=== PATIENT | female | born 1965 | race Native Hawaiian/Other Pacific Islander ===

== ENCOUNTER 2017-04-23 01:13 | Emergency (ER) | payer OTHER ==
[~2017-04-23] VITALS: Ht 167.6 cm; Wt 93.4 kg
[2017-04-23] MEDS ORDERED: BENTYL10 MG PO (02:07)
[2017-04-23] MEDS ORDERED: DIAZ2TAB PO (02:08)
[2017-04-23] MEDS ORDERED: VYVANSE20 M1 PO (02:08)
[2017-04-23 03:10] LABS: PLATELET COUNT 304 K/uL (152-353)
[2017-04-23 03:14] LABS: POTASSIUM 3.4 mmol/L (3.6-5.2); SODIUM 137 mmol/L (136-145)
[2017-04-23 05:20] VITALS: BP 143/73; TEMP 98.4
== END 2017-04-23 05:26 | disposition home or self-care (01) ==
LOC: ED 01:13
PROVIDERS: Family Medicine
DX: K57.92 Diverticulitis of intestine, part unspecified, without perforation or abscess without bleeding (principal)
CPT/HCPCS: 36415; 80053; 80307; 81000; 82150; 83690; 85027; 96361; 96365; 96375; 99284; J1170; J2405; J3490

== ENCOUNTER 2017-09-30 17:30 | Emergency (ER) | payer OTHER ==
[~2017-09-30] VITALS: Ht 167.6 cm; Wt 102.5 kg
[~2017-09-30 17:30] MED LIST: BENTYL10 MG PO; DIAZ2TAB PO; VYVANSE20 M1 PO
[2017-09-30 17:43] VITALS: BP 180/109; TEMP 99
== END 2017-09-30 19:42 | disposition home or self-care (01) ==
LOC: ED 17:30
DX: S83.8X1D Sprain of other specified parts of right knee, subsequent encounter (principal); W10.8XXD Fall (on) (from) other stairs and steps, subsequent encounter

== ENCOUNTER 2017-10-14 16:43 | Emergency (ER) | payer OTHER ==
[~2017-10-14] VITALS: Ht 167.6 cm; Wt 102.5 kg
[2017-10-14 16:56] VITALS: BP 168/118; TEMP 98.1
== END 2017-10-14 17:34 | disposition home or self-care (01) ==
LOC: ED 16:43
DX: G89.29 Other chronic pain (principal)
CPT/HCPCS: 99282

== ENCOUNTER 2017-11-16 18:37 | Emergency (ER) | payer OTHER ==
[~2017-11-16] VITALS: Ht 167.6 cm; Wt 102.5 kg
[2017-11-16 19:28] LABS: PLATELET COUNT 245 K/uL (152-353)
[2017-11-16 20:15] VITALS: BP 154/69; TEMP 99.2
== END 2017-11-16 20:15 | disposition home or self-care (01) ==
LOC: ED 18:37
DX: M94.261 Chondromalacia, right knee (principal); M17.11 Unilateral primary osteoarthritis, right knee; M25.561 Pain in right knee
CPT/HCPCS: 36415; 85027; 99283; L1830

== ENCOUNTER 2017-12-05 11:49 | Emergency (ER) | payer OTHER ==
[~2017-12-05] VITALS: Ht 167.6 cm; Wt 102.5 kg
[2017-12-05 11:50] VITALS: TEMP 98.8
[2017-12-05 14:24] LABS: PLATELET COUNT 238 K/uL (152-353)
== END 2017-12-05 15:30 | disposition home or self-care (01) ==
LOC: ED 11:49
DX: M47.896 Other spondylosis, lumbar region (principal); M51.86 Other intervertebral disc disorders, lumbar region
CPT/HCPCS: 36415; 85027; 85651; 99283

== ENCOUNTER 2018-01-04 17:16 | Emergency (ER) | payer OTHER ==
[~2018-01-04] VITALS: Ht 167.6 cm; Wt 102.5 kg
[2018-01-04 17:26] VITALS: TEMP 97.7
[2018-01-04 18:18] VITALS: BP 138/72
== END 2018-01-04 18:18 | disposition home or self-care (01) ==
LOC: ED 17:16
DX: M54.16 Radiculopathy, lumbar region (principal)
CPT/HCPCS: 99282

== ENCOUNTER 2018-01-18 22:39 | Emergency (ER) | payer OTHER ==
[~2018-01-18] VITALS: Ht 167.6 cm; Wt 102.5 kg
[2018-01-18] MEDS ORDERED: PHENTERMINE15 MG PO (22:55)
[2018-01-18 23:52] LABS: PLATELET COUNT 245 K/uL (152-353)
[2018-01-19 00:03] LABS: POTASSIUM 3.8 mmol/L (3.6-5.2)
[2018-01-19 01:06] VITALS: BP 156/86; TEMP 98.2
== END 2018-01-19 01:06 | disposition home or self-care (01) ==
LOC: ED 22:39
PROVIDERS: Emergency Medicine
DX: N20.0 Calculus of kidney (principal)
CPT/HCPCS: 36415; 80053; 81000; 81025; 85027; 96365; 96374; 99284; J2175

== ENCOUNTER 2018-02-07 18:12 | Emergency (ER) | payer OTHER ==
[~2018-02-07] VITALS: Ht 167.6 cm; Wt 102.5 kg
[~2018-02-07 18:12] MED LIST changes: +PHENTERMINE15 MG PO
[2018-02-07 19:48] VITALS: BP 148/79; TEMP 98.3
== END 2018-02-07 19:49 | disposition home or self-care (01) ==
LOC: ED 18:12
DX: M54.32 Sciatica, left side (principal)
CPT/HCPCS: 99283

== ENCOUNTER 2018-03-12 09:03 | Emergency (ER) | payer OTHER ==
[~2018-03-12] VITALS: Ht 167.6 cm; Wt 102.5 kg
[2018-03-12 10:07] LABS: PLATELET COUNT 240 K/uL (152-353)
[2018-03-12 10:11] LABS: POTASSIUM 4.1 mmol/L (3.6-5.2)
[2018-03-12 11:25] VITALS: BP 150/85; TEMP 98
== END 2018-03-12 11:32 | disposition home or self-care (01) ==
LOC: ED 09:03
PROVIDERS: Family Medicine
DX: R31.9 Hematuria, unspecified (principal); R10.9 Unspecified abdominal pain
CPT/HCPCS: 36415; 80053; 80307; 81000; 85027; 96361; 96365; 96374; 99284; J2175; J2405

== ENCOUNTER 2018-05-20 08:51 | Emergency (ER) | payer OTHER ==
[~2018-05-20] VITALS: Ht 167.6 cm; Wt 108.4 kg
[2018-05-20 09:00] VITALS: TEMP 98.4
[2018-05-20] MEDS ORDERED: MULTIVITAMI1 PO (09:31)
[2018-05-20] MEDS ORDERED: GABA100C2 PO (09:32)
[2018-05-20 09:59] VITALS: BP 167/78
== END 2018-05-20 10:03 | disposition home or self-care (01) ==
LOC: ED 08:51
DX: S39.012A Strain of muscle, fascia and tendon of lower back, initial encounter (principal); M54.32 Sciatica, left side; X50.1XXA Overexertion from prolonged static or awkward postures, initial encounter
CPT/HCPCS: 96372; 99282; J1100

== ENCOUNTER 2018-07-07 18:03 | Emergency (ER) | payer OTHER ==
[~2018-07-07] VITALS: Ht 167.6 cm; Wt 100.7 kg
[~2018-07-07 18:03] MED LIST changes: +GABA100C2 PO; +MULTIVITAMI1 PO
[2018-07-07 19:03] VITALS: BP 160/92; TEMP 98.2
== END 2018-07-07 19:03 | disposition home or self-care (01) ==
LOC: ED 18:03
DX: M54.32 Sciatica, left side (principal)
CPT/HCPCS: 99281

== ENCOUNTER 2018-07-14 21:34 | Emergency (ER) | payer OTHER ==
[~2018-07-14] VITALS: Ht 167.6 cm; Wt 100.7 kg
[2018-07-14 22:55] VITALS: BP 146/91; TEMP 98.2
== END 2018-07-14 22:55 | disposition home or self-care (01) ==
LOC: ED 21:34
DX: M54.16 Radiculopathy, lumbar region (principal)
CPT/HCPCS: 99282

== ENCOUNTER 2018-07-19 13:54 | Emergency (ER) | payer OTHER ==
[~2018-07-19] VITALS: Ht 167.6 cm; Wt 119.8 kg
[2018-07-19 14:29] VITALS: BP 160/106; TEMP 98.3
== END 2018-07-19 14:29 | disposition home or self-care (01) ==
LOC: ED 13:54
DX: M54.5 Low back pain (principal); G89.29 Other chronic pain
CPT/HCPCS: 99281

== ENCOUNTER 2018-09-04 07:48 | Emergency (ER) | payer OTHER ==
[~2018-09-04] VITALS: Ht 167.6 cm; Wt 97.5 kg
[2018-09-04 07:55] VITALS: TEMP 98.1
[2018-09-04] MEDS ORDERED: OXYC5TAB53 PO (09:06)
[2018-09-04 09:27] VITALS: BP 162/89
== END 2018-09-04 09:27 | disposition home or self-care (01) ==
LOC: ED 07:48
PROC: 2W3MX1Z Immobilization of Left Lower Extremity using Splint (ICD-10-PCS; principal; 2018-09-04)
DX: S80.02XA Contusion of left knee, initial encounter (principal); W10.8XXA Fall (on) (from) other stairs and steps, initial encounter; Y92.098 Other place in other non-institutional residence as the place of occurrence of the external cause
CPT/HCPCS: 99283

== ENCOUNTER 2018-10-16 14:00 | Emergency (ER) | payer OTHER ==
[~2018-10-16] VITALS: Ht 167.6 cm; Wt 98.0 kg
[~2018-10-16 14:00] MED LIST changes: +OXYC5TAB53 PO
[2018-10-16 14:23] VITALS: TEMP 97.7
[2018-10-16 15:30] LABS: PLATELET COUNT 245 K/uL (152-353)
[2018-10-16 16:56] VITALS: BP 168/82
== END 2018-10-16 16:56 | disposition home or self-care (01) ==
LOC: ED 14:00
PROVIDERS: Emergency Medicine
DX: N13.2 Hydronephrosis with renal and ureteral calculous obstruction (principal)
CPT/HCPCS: 80053; 81000; 85027; 96360; 96375; 99284; J2270; J2405

== ENCOUNTER 2018-11-04 08:34 | Emergency (ER) | payer OTHER ==
[~2018-11-04] VITALS: Ht 167.6 cm; Wt 98.0 kg
[2018-11-04 10:13] VITALS: BP 159/63; TEMP 99.1
== END 2018-11-04 10:30 | disposition home or self-care (01) ==
LOC: ED 08:34
DX: M54.6 Pain in thoracic spine (principal); M54.5 Low back pain; S30.0XXA Contusion of lower back and pelvis, initial encounter; S20.222A Contusion of left back wall of thorax, initial encounter; S20.221A Contusion of right back wall of thorax, initial encounter; W10.9XXA Fall (on) (from) unspecified stairs and steps, initial encounter
CPT/HCPCS: 96372; 99283; J1020; J2270

== ENCOUNTER 2018-11-11 05:00 | Emergency (ER) | payer OTHER ==
[~2018-11-11] VITALS: Ht 167.6 cm; Wt 93.9 kg
[2018-11-11 05:13] VITALS: BP 157/101; TEMP 98.1
== END 2018-11-11 06:20 | disposition home or self-care (01) ==
LOC: ED 05:00
DX: M54.5 Low back pain (principal); W10.8XXS Fall (on) (from) other stairs and steps, sequela
CPT/HCPCS: 99282

== ENCOUNTER 2018-12-25 09:43 | Emergency (ER) | payer OTHER ==
[~2018-12-25] VITALS: Ht 167.6 cm; Wt 91.2 kg
[2018-12-25 09:46] VITALS: TEMP 98.1
[2018-12-25 10:50] VITALS: BP 162/88
== END 2018-12-25 10:50 | disposition home or self-care (01) ==
LOC: ED 09:43
DX: K08.89 Other specified disorders of teeth and supporting structures (principal)
CPT/HCPCS: 99282

== ENCOUNTER 2019-01-05 17:52 | Emergency (ER) | payer OTHER ==
[~2019-01-05] VITALS: Ht 167.6 cm; Wt 91.2 kg
[2019-01-05 18:03] VITALS: BP 172/98; TEMP 97.7
== END 2019-01-05 19:15 | disposition home or self-care (01) ==
LOC: ED 17:52
DX: K02.9 Dental caries, unspecified (principal); K04.7 Periapical abscess without sinus; K08.89 Other specified disorders of teeth and supporting structures
CPT/HCPCS: 99283

== ENCOUNTER 2019-02-10 08:20 | Emergency (ER) | payer OTHER ==
[~2019-02-10] VITALS: Ht 167.6 cm; Wt 121.6 kg
[2019-02-10 08:28] VITALS: TEMP 99.6
[2019-02-10 10:08] LABS: PLATELET COUNT 253 K/uL (152-353)
[2019-02-10 12:50] VITALS: BP 111/73
== END 2019-02-10 12:50 | disposition home or self-care (01) ==
LOC: ED 08:20
PROVIDERS: Emergency Medicine Emergency Medical Services
DX: N20.0 Calculus of kidney (principal); K57.92 Diverticulitis of intestine, part unspecified, without perforation or abscess without bleeding
CPT/HCPCS: 36415; 80053; 81000; 85027; 96360; 96361; 96365; 96375; 96376; 99284; J0744; J1170; J2175; J2405

== ENCOUNTER 2019-03-22 08:22 | Emergency (ER) | payer OTHER ==
[~2019-03-22] VITALS: Ht 167.6 cm; Wt 124.7 kg
[2019-03-22 08:33] VITALS: TEMP 98.2
[2019-03-22 10:01] VITALS: BP 160/88
== END 2019-03-22 10:01 | disposition home or self-care (01) ==
LOC: ED 08:22
DX: M25.561 Pain in right knee (principal); M17.11 Unilateral primary osteoarthritis, right knee; M70.51 Other bursitis of knee, right knee; W19.XXXA Unspecified fall, initial encounter
CPT/HCPCS: 96372; 99283; J2270; J2930

== ENCOUNTER 2019-06-17 09:03 | Emergency (ER) | payer OTHER ==
[~2019-06-17] VITALS: Ht 167.6 cm; Wt 98.0 kg
[2019-06-17 09:12] VITALS: BP 141/102; TEMP 98
== END 2019-06-17 10:10 | disposition home or self-care (01) ==
LOC: ED 09:03
DX: M54.5 Low back pain (principal); G89.29 Other chronic pain; W10.9XXA Fall (on) (from) unspecified stairs and steps, initial encounter
CPT/HCPCS: 96372; 99283; J2360; J2930

== ENCOUNTER 2019-09-26 08:35 | Emergency (ER) | payer OTHER ==
[~2019-09-26] VITALS: Ht 167.6 cm; Wt 102.5 kg
[2019-09-26 08:44] VITALS: TEMP 97.8
[2019-09-26 09:45] VITALS: BP 168/99
== END 2019-09-26 09:45 | disposition home or self-care (01) ==
LOC: ED 08:35
DX: K08.89 Other specified disorders of teeth and supporting structures (principal)
CPT/HCPCS: 96372; 99282; J2175

== ENCOUNTER 2019-10-12 07:12 | Emergency (ER) | payer OTHER ==
[~2019-10-12] VITALS: Ht 167.6 cm; Wt 102.5 kg
[2019-10-12 07:27] VITALS: TEMP 98.7
[2019-10-12 08:02] VITALS: BP 156/84
== END 2019-10-12 08:02 | disposition home or self-care (01) ==
LOC: ED 07:12
DX: K08.89 Other specified disorders of teeth and supporting structures (principal); S02.5XXA Fracture of tooth (traumatic), initial encounter for closed fracture
CPT/HCPCS: 96372; 99283; J0696; J1170

== ENCOUNTER 2020-01-30 15:50 | Emergency (ER) | payer OTHER ==
[~2020-01-30] VITALS: Ht 167.6 cm; Wt 134.3 kg
[2020-01-30 16:00] VITALS: TEMP 99.1
[2020-01-30 17:50] VITALS: BP 142/89
== END 2020-01-30 17:50 | disposition home or self-care (01) ==
LOC: ED 15:50
PROC: 2W3MX1Z Immobilization of Left Lower Extremity using Splint (ICD-10-PCS; principal; 2020-01-30)
DX: S80.02XA Contusion of left knee, initial encounter (principal); W01.0XXA Fall on same level from slipping, tripping and stumbling without subsequent striking against object, initial encounter; Y92.511 Restaurant or cafe as the place of occurrence of the external cause
CPT/HCPCS: 99283

== ENCOUNTER 2020-02-09 07:49 | Emergency (ER) | payer OTHER ==
[~2020-02-09] VITALS: Ht 167.6 cm; Wt 93.4 kg
[2020-02-09 09:04] VITALS: BP 135/85; TEMP 98.7
== END 2020-02-09 09:05 | disposition home or self-care (01) ==
LOC: ED 07:49
DX: M17.12 Unilateral primary osteoarthritis, left knee (principal)
CPT/HCPCS: 99282

== ENCOUNTER 2020-03-29 07:54 | Emergency (ER) | payer OTHER ==
[~2020-03-29] VITALS: Ht 167.6 cm; Wt 93.4 kg
[2020-03-29 09:24] LABS: PLATELET COUNT 291 K/uL (152-353)
[2020-03-29 09:48] LABS: POTASSIUM 3.9 mmol/L (3.6-5.2)
[2020-03-29 10:42] VITALS: BP 149/74; TEMP 97.3
== END 2020-03-29 10:48 | disposition home or self-care (01) ==
LOC: ED 07:54
PROVIDERS: Family Medicine
DX: N20.0 Calculus of kidney (principal); N39.0 Urinary tract infection, site not specified
CPT/HCPCS: 36415; 80053; 81000; 83605; 83690; 85027; 87086; 87088; 96360; 96365; 96368; 96375; 99284; J0696; J1170; J2270; J2405; Q9963

== ENCOUNTER 2020-04-12 07:26 | Emergency (ER) | payer OTHER ==
[~2020-04-12] VITALS: Ht 167.6 cm; Wt 127.0 kg
[2020-04-12 09:13] VITALS: BP 158/108; TEMP 98.1
== END 2020-04-12 09:15 | disposition home or self-care (01) ==
LOC: ED 07:26
DX: N20.0 Calculus of kidney (principal); K57.32 Diverticulitis of large intestine without perforation or abscess without bleeding; N39.0 Urinary tract infection, site not specified; Z87.442 Personal history of urinary calculi
CPT/HCPCS: 36415; 81000; 96372; 96374; 99284; J0696; J2405

== ENCOUNTER 2020-04-26 07:58 | Emergency (ER) | payer OTHER ==
[~2020-04-26] VITALS: Ht 167.6 cm; Wt 93.4 kg
[2020-04-26 09:30] VITALS: BP 149/94; TEMP 98.3
== END 2020-04-26 09:35 | disposition home or self-care (01) ==
LOC: ED 07:58
DX: N20.0 Calculus of kidney (principal); Z87.442 Personal history of urinary calculi
CPT/HCPCS: 81000; 99282

== ENCOUNTER 2020-05-18 08:15 | Emergency (ER) | payer OTHER ==
[~2020-05-18] VITALS: Ht 167.6 cm; Wt 97.5 kg
[2020-05-18 08:24] VITALS: TEMP 98
[2020-05-18] MEDS ORDERED: TAMS0.4C PO (08:44)
[2020-05-18] MEDS ORDERED: LEVOFLOXACIN500 MG PO (08:45)
[2020-05-18 08:53] LABS: PLATELET COUNT 281 K/uL (152-353)
[2020-05-18 09:00] LABS: POTASSIUM 4.4 mmol/L (3.6-5.2)
[2020-05-18 10:05] VITALS: BP 138/91
== END 2020-05-18 10:05 | disposition home or self-care (01) ==
LOC: ED 08:15
PROVIDERS: Hospitalist
DX: N20.0 Calculus of kidney (principal); N39.0 Urinary tract infection, site not specified; Z87.442 Personal history of urinary calculi
CPT/HCPCS: 36415; 80053; 81000; 83690; 85027; 87086; 87088; 96360; 96365; 96375; 99284; J0696; J1170; J2270; J2405

== ENCOUNTER 2020-05-28 07:20 | Emergency (ER) | payer OTHER ==
[~2020-05-28] VITALS: Ht 167.6 cm; Wt 97.5 kg
[~2020-05-28 07:20] MED LIST changes: +LEVOFLOXACIN500 MG PO; +TAMS0.4C PO
[2020-05-28 07:26] VITALS: BP 162/79; TEMP 97
[2020-05-28 08:00] LABS: PLATELET COUNT 285 K/uL (152-353)
[2020-05-28 08:06] LABS: POTASSIUM 3.9 mmol/L (3.6-5.2)
== END 2020-05-28 08:40 | disposition home or self-care (01) ==
LOC: ED 07:20
PROVIDERS: Emergency Medicine Emergency Medical Services
DX: R10.32 Left lower quadrant pain (principal)
CPT/HCPCS: 36415; 80053; 81000; 85027; 96360; 96375; 99284; J2270; J2405